=== PATIENT | female | born 1955 | race Caucasian/White ===

== ENCOUNTER 2022-12-29 19:42 | Inpatient (IN) | payer MEDICARE ==
[2022-12-29 23:43] VITALS: BMI 36.0
[2022-12-29] MEDS ORDERED: Acetaminophen 325 MG TAB PO PRN (23:57)
[2022-12-29] MEDS ORDERED: Senokot S 8.6-50 MG TAB PO PRN (23:57)
[2022-12-29] MEDS ORDERED: Calcium Carbonate 500 MG ChewTAB PO PRN (23:57)
[2022-12-29] MEDS ORDERED: Ondansetron ODT 4 MG TAB PO PRN (23:57)
[2022-12-30] MEDS: Dextrose 5%-Lactated Ringers 1,000 ML IV SCH ×4 (00:41→20:13)
[2022-12-30] MEDS: Morphine 2 MG/ML VIAL SLOW IVP PRN ×3 (00:41→23:39)
[2022-12-30 06:39] LABS: #Basophils 0.1 thou/uL (0.0-0.2); #Monocytes 1.4 thou/uL (0.11-0.59); #Neutrophils 11.6 thou/uL (1.40-6.50); %Basophils 0.3 % (0.0-1.0); %Eosinophils 0.1 % (0.0-10.0); %Monocytes 9.6 % (0.0-10.0); %Neutrophils 79.7 % (42.0-75.0); Hemoglobin 11.1 g/dL (12.0-16.0); Mean Corpuscular HGB CONC 33.1 g/dL (32.0-36.0); Mean Corpuscular Hemoglobin 28.4 pg (27.0-31.0); Mean Corpuscular Volume 85.7 fl (78.0-98.0); Mean Platelet Volume 9.6 fL (7.4-10.4); Platelet Count 232 10x3/uL (130-400); RBC Distribution Width 12.9 % (11.5-14.5); Red Blood Cell (RBC) Count 3.91 mill/uL (4.20-5.40); White Blood Cell (WBC) Count 14.5 10x3/uL (4.8-10.8)
[2022-12-30 07:01] LABS: ALT (SGPT) 79 U/L (8-55); AST (SGOT) 98 U/L (5-34); Albumin 3.2 g/dL (3.4-4.8); Alkaline Phosphatase 193 U/L (40-110); Anion Gap 13 mmol/L (10-20); BUN (Urea Nitrogen) 12 mg/dL (9.8-20.1); Bilirubin, Total 3.8 mg/dL (0.2-1.2); Calc. Creatinine Clearance 101 mL/min (70-130); Carbon Dioxide 26 mmol/L (23-31); Chloride 102 mmol/L (98-107); Estimated GFR 75; Globulin 3.2 g/dL (2.4-3.5); Glucose 146 mg/dL (80-115); Lipase 83 U/L (8-78); Potassium 3.9 mmol/L (3.5-5.1); Protein, Total 6.4 g/dL (5.8-8.1); Sodium 137 mmol/L (136-145)
[2022-12-30] MEDS ORDERED: Famotidine 20 MG TAB PO SCH (09:00)
[2022-12-30] MEDS: Amlodipine 10 MG TAB PO SCH (09:30)
[2022-12-30] MEDS ORDERED: Bupivacaine HCl 0.5%/Epinephrine 1:200,000/PF 30 ml Vial ONE (12:03)
[2022-12-30] MEDS ORDERED: fentaNYL PF 100 MCG/2 ML SYRINGE ONE (12:10)
[2022-12-30] MEDS ORDERED: Iopamidol 30 ML ONE (12:16)
[2022-12-30] MEDS ORDERED: Sodium Chloride 0.9% 100 ML ONE (12:39)
[2022-12-30] MEDS ORDERED: cefOXitin 2 GM VIAL ONE (12:39)
[2022-12-30 12:41] LABS: INR-International Normal Ratio 1.2; PTT 34.6 sec (22.9-36.1); Prothrombin Time 15.4 sec (12.0-14.7)
[2022-12-30] MEDS ORDERED: Midazolam HCl 2 mg/2 ml Vial ONE (13:08)
[2022-12-30] MEDS ORDERED: SUGAMMADEX SODIUM 200 MG/2 ML VIAL ONE (13:08)
[2022-12-30] MEDS ORDERED: Lidocaine 1% PF 5 ML VIAL ONE (13:11)
[2022-12-30] MEDS ORDERED: Rocuronium Bromide 10 MG/ML (10ML VIAL) ONE (13:11)
[2022-12-30] MEDS ORDERED: PROPOFOL 200 MG/20 ML VIAL ONE (13:11)
[2022-12-30] MEDS ORDERED: Dexamethasone 20 MG/5 ML VIAL ONE (13:11)
[2022-12-30] MEDS ORDERED: Ondansetron PF 4 MG/2 ML Vial ONE (13:11)
[2022-12-30] MEDS ORDERED: traMADol HCl 50 MG TAB PO PRN (14:40)
[2022-12-30] MEDS ORDERED: fentaNYL 50 mcg/mL 1 mL Vial ONE (15:14)
[2022-12-30] MEDS: Acetaminophen 325 MG TAB PO SCH ×3 (15:56→20:19)
[2022-12-30] MEDS: cefOXitin 2 GM in Sodium Chloride 0.9% 100 ML IVPB SCH (20:12)
[2022-12-31] MEDS: cefOXitin 2 GM in Sodium Chloride 0.9% 100 ML IVPB SCH ×2 (05:03→14:10)
[2022-12-31] MEDS: Dextrose 5%-Lactated Ringers 1,000 ML IV SCH ×2 (05:04→17:27)
[2022-12-31] MEDS: Morphine 2 MG/ML VIAL SLOW IVP PRN (06:44)
[2022-12-31 06:48] LABS: #Monocytes 0.9 thou/uL (0.11-0.59); #Neutrophils 8.7 thou/uL (1.40-6.50); %Basophils 0.1 % (0.0-1.0); %Lymphocytes 9.4 % (21.0-51.0); %Monocytes 8.7 % (0.0-10.0); %Neutrophils 81.4 % (42.0-75.0); Hemoglobin 11.4 g/dL (12.0-16.0); Mean Corpuscular HGB CONC 33.1 g/dL (32.0-36.0); Mean Corpuscular Hemoglobin 28.6 pg (27.0-31.0); Mean Corpuscular Volume 86.2 fl (78.0-98.0); Platelet Count 280 10x3/uL (130-400); RBC Distribution Width 12.9 % (11.5-14.5); Red Blood Cell (RBC) Count 3.99 mill/uL (4.20-5.40); White Blood Cell (WBC) Count 10.7 10x3/uL (4.8-10.8)
[2022-12-31] MEDS ORDERED: Iopamidol 30 ML FS ONE (07:20)
[2022-12-31 07:26] LABS: ALT (SGPT) 66 U/L (8-55); AST (SGOT) 84 U/L (5-34); Albumin 3.2 g/dL (3.4-4.8); Alkaline Phosphatase 186 U/L (40-110); Anion Gap 12 mmol/L (10-20); BUN (Urea Nitrogen) 8 mg/dL (9.8-20.1); Bilirubin, Total 2.5 mg/dL (0.2-1.2); Calc. Creatinine Clearance 86 mL/min (70-130); Calcium 9.2 mg/dL (7.8-10.44); Carbon Dioxide 26 mmol/L (23-31); Cardiac Risk 4.1 (Less than 4.5); Chloride 105 mmol/L (98-107); Cholesterol 206 mg/dl (< 200 Desired); Estimated GFR 62; Globulin 3.9 g/dL (2.4-3.5); Glucose 125 mg/dL (80-115); HDL Cholesterol 50 mg/dL (>60 Neg Risk); Lipase 9 U/L (8-78); Potassium 4.1 mmol/L (3.5-5.1); Protein, Total 7.1 g/dL (5.8-8.1); Sodium 139 mmol/L (136-145)
[2022-12-31] MEDS ORDERED: Indomethacin 50 MG SUPP ONE (07:27)
[2022-12-31 07:59] LABS: Triglycerides 102 mg/dL (Less than 150)
[2022-12-31] MEDS ORDERED: Glucagon 1 MG/ML KIT ONE (07:59)
[2022-12-31] MEDS ORDERED: Famotidine/PF 20 mg/2ml Vial ONE (08:00)
[2022-12-31] MEDS ORDERED: fentaNYL 50 mcg/mL 1 mL Vial ONE (08:01)
[2022-12-31] MEDS ORDERED: Midazolam HCl 2 mg/2 ml Vial ONE (08:01)
[2022-12-31] MEDS ORDERED: Rocuronium Bromide 10 MG/ML (10ML VIAL) ONE (08:08)
[2022-12-31] MEDS ORDERED: Dexamethasone 20 MG/5 ML VIAL ONE (08:08)
[2022-12-31] MEDS ORDERED: Lidocaine 1% PF 5 ML VIAL ONE (08:08)
[2022-12-31] MEDS ORDERED: Ondansetron PF 4 MG/2 ML Vial ONE (08:08)
[2022-12-31] MEDS ORDERED: PHENYLEPHRINE-NS 100 MCG/ML 10 ML SYRINGE ONE (08:08)
[2022-12-31] MEDS ORDERED: PROPOFOL 200 MG/20 ML VIAL ONE (08:08)
[2022-12-31] MEDS ORDERED: SUGAMMADEX SODIUM 200 MG/2 ML VIAL ONE (08:09)
[2022-12-31] MEDS ORDERED: Aspirin 81 mg Enteric Coated Tablet PO SCH (09:00)
[2022-12-31] MEDS ORDERED: Promethazine HCl 25 MG/ML VIAL IM PRN (09:20)
[2022-12-31] MEDS ORDERED: Ondansetron HCl/PF 4 MG/2 ML Vial IVP PRN (09:20)
[2022-12-31] MEDS: Acetaminophen 325 MG TAB PO SCH ×2 (10:50→15:07)
[2022-12-31] MEDS: Amlodipine 10 MG TAB PO SCH (10:50)
[2022-12-31 16:15] VITALS: BP 128/76; TEMP 98.3
== END 2022-12-31 19:32 | disposition home or self-care (01) | DRG 417 ==
LOC: T4-A 19:42
PROVIDERS: ADMIT Student in an Organized Health Care Education/Training Program; ATTEND Hospitalist
PROC: 0FT44ZZ Resection of Gallbladder, Percutaneous Endoscopic Approach (ICD-10-PCS; principal; 2022-12-30)
PROC: BF101ZZ Fluoroscopy of Bile Ducts using Low Osmolar Contrast (ICD-10-PCS; 2022-12-30)
PROC: 0FC98ZZ Extirpation of Matter from Common Bile Duct, Via Natural or Artificial Opening Endoscopic (ICD-10-PCS; 2022-12-31)
PROC: BF101ZZ Fluoroscopy of Bile Ducts using Low Osmolar Contrast (ICD-10-PCS; 2022-12-31)
DX: K80.63 Calculus of gallbladder and bile duct with acute cholecystitis with obstruction (principal); K85.10 Biliary acute pancreatitis without necrosis or infection; K21.9 Gastro-esophageal reflux disease without esophagitis; K66.0 Peritoneal adhesions (postprocedural) (postinfection); I10 Essential (primary) hypertension; Z88.5 Allergy status to narcotic agent; Z88.0 Allergy status to penicillin; Z91.013 Allergy to seafood; Z91.048 Other nonmedicinal substance allergy status; Z79.899 Other long term (current) drug therapy; Z79.82 Long term (current) use of aspirin
CPT/HCPCS: 36415; 47532; 74181; 80053; 80061; 83690; 85025; 85610; 85730; 86850; 86900; 86901; 88304; C1713; C1725; C1889; J0694; J1100; J1611; J2250; J2272; J2405; J2704; J3010; J3490; Q9966; Q9967; S0028